=== PATIENT | female | born 1995 ===

== ENCOUNTER 2018-08-01 21:10 | Emergency (ER) | payer MEDICAID ==
[2018-08-01] MEDS ORDERED: Sodium Chloride 0.9% 1,000 ML IV STA (21:54)
--- NOTE | 2018-08-01 22:07 | ED PDOC ---
Arrival/HPI - General Chief Complaint: Flu-like Symptoms Time Seen by Provider: 08/01/18 21:12 Historian: Patient - History of Present Illness Narrative History of Present Illness (Text): 08/01/18 22:04 22yr old female presents today with 5 day history of sore throat, nasal congestion, productive cough, fever, chills, bodyaches. pt states she was seen in ER 2 days ago and diagnosed with the flu. pt states she has been taking t ylenol and took excedrin today for fever. pt denies abdominal pain, but states she gets nauseous after eating. pt c/o sore throat and post nasal drip. pt states cough is occasionally dry and occasionally productive. pt denies sick contacts. no other complaints. Past Medical History - Provider Review Nursing Documentation Reviewed: Yes - Travel History Have you recently traveled outside [place] w/in the past 3 mons?: No - Psychiatric Hx Psychophysiologic Disorder: No Hx Substance Use: Yes (CANNABIS) Family/Social History - Physician Review Nursing Documentation Reviewed: Yes Family/Social History: Unknown Family HX Smoking Status: Never Smoked Hx Alcohol Use: No Hx Substance Use: Yes (CANNABIS) Allergies/Home Meds Allergies/Adverse Reactions: Allergies No Known Allergies Allergy (Verified 08/01/18 21:19) Review of Systems - Review of Systems Constitutional: Fatigue, Fevers ENT: Sore Throat, Sinus Congestion Respiratory: Cough. absent: SOB Cardiovascular: absent: Chest Pain Gastrointestinal: Nausea. absent: Abdominal Pain, Constipation, Diarrhea Genitourinary Female: absent: Dysuria Musculoskeletal: absent: Arthralgias, Back Pain, Neck Pain Skin: absent: Rash, Pruritis Neurological: absent: Headache, Dizziness Psychiatric: absent: Anxiety, Depression, Suicidal Ideation Physical Exam Vital Signs Reviewed: Yes Vital Signs Temp Pulse Resp BP Pulse Ox 08/01/18 21:20 99.7 F H 111 H 17 144/91 H 97 Temperature: Afebrile Blood Pressure: Hypertensive Pulse: Tachycardic Respiratory Rate: Normal Appearance: Positive for: Well-Appearing, Non-Toxic, Comfortable Pain Distress: None Mental Status: Positive for: Alert and Oriented X 3 - Systems Exam Head: Present: Atraumatic Pupils: Present: PERRL Extroacular Muscles: Present: EOMI Conjunctiva: Present: Normal Ears: Present: Normal, NORMAL TM Mouth: Present: Moist Mucous Membranes, Normal Lips, Normal Tounge. No: Drooling, Trismus Pharnyx: Present: ERYTHEMA, Other (+ post nasal drip noted). No: EXUDATE, TONSILS ENLARGED Nose (External): Present: Atraumatic Nose (Internal): Present: Clear Mucous Neck: Present: Normal Range of Motion, Trachea Midline. No: Lymphadenopathy Respiratory/Chest: Present: Clear to Auscultation, Good Air Exchange. No: Respiratory Distress, Accessory Muscle Use Cardiovascular: Present: Regular Rate and Rhythm, Normal S1, S2. No: Murmurs Abdomen: No: Tenderness, Distention, Peritoneal Signs, Rebound, Guarding Back: Present: Normal Inspection Upper Extremity: Present: Normal ROM Lower Extremity: Present: Normal ROM Neurological: Present: GCS=15, Speech Normal Medical Decision Making ED Course and Treatment: 08/01/18 22:07 Patient is nontoxic well-appearing in no distress. Vital signs are stable. c/o flu like symptoms for 5 days. tylenol PO cbc: wbc; 11.7 cmp: wnl cxr; wnl ua: no leukocytes rapid flu; negative rapid strep; negative pt given 1L NS iv bolus, and toradol IV. pt reassessment; pt feeling much better; vitals stable. pt started on zithromax Po. discussed all results with patient in depth. I advised follow up with primary care physician within the next 2 days. I advised increase fluids and return if symptoms worsen persist or if new symptoms develop. Patient verbalizes understanding of discharge instructions and need for immediate followup. all aspects of this case were discussed the attending of record. IMPRESSION; cough Motrin one tablet every 6 hours as needed for pain/fever reduction Zithromax one tablet once daily x4 days Increase fluids Followup with primary care physician the next 2 days Return if symptoms worsen persist or if new symptoms develop Reassessment Condition: Re-examined, Improved - RAD Interpretation Radiology Orders: 08/01/18 21:54 CHEST TWO VIEWS (PA/LAT) [RAD] Stat - Medication Orders Current Medication Orders: Sodium Chloride (Sodium Chloride 0.9%) 1,000 mls @ 999 mls/hr IV .Q1H1M STA Stop: 08/01/18 22:54 Discontinued Medications Acetaminophen (Tylenol 325mg Tab) 975 mg PO STAT STA Stop: 08/01/18 21:47 Disposition/Present on Arrival - Present on Arrival Any Indicators Present on Arrival: No History of DVT/PE: No History of Uncontrolled Diabetes: No Urinary Catheter: No History of Decub. Ulcer: No History Surgical Site Infection Following: None - Disposition Have Diagnosis and Disposition been Completed?: Yes Diagnosis: Cough, Fever Disposition: HOME/ ROUTINE Disposition Time: 22:30 Patient Plan: Discharge Patient Problems: Current Active Problems Problem Status Onset Influenza Acute Condition: GOOD Discharge Instructions (ExitCare): Cough, Adult (DC), Fever of Unknown Origin (DC) Additional Instructions: Motrin one tablet every 6 hours as needed for pain/fever reduction Zithromax one tablet once daily x4 days Increase fluids Followup with primary care physician the next 2 days Return if symptoms worsen persist or if new symptoms develop Prescriptions: Azithromycin [Zithromax] 250 mg PO DAILY #4 tab Ibuprofen [Motrin] 600 mg PO Q6H PRN #20 tab PRN Reason: pain/fever reduction Referrals: Cherie Taveras MD [Medical Doctor] - Follow up with primary [facility] [Outside] - Follow up with primary Forms: [employer] (Rom[place]), WORK NOTE
[2018-08-01 22:45] LABS: ALB/GLOB RATIO 1.1 (1.1-1.8); ALBUMIN 4.7 g/dL (3.0-4.8); ALT/SGPT 31 U/L (7-56); AST/SGOT 36 U/L (14-36); BLOOD UREA NITROGEN 13 mg/dL (7-21); CALCIUM 9.5 mg/dL (8.4-10.5); GFR NON-AFRICAN AMERICAN > 60
[2018-08-01 22:46] LABS: PH,URINE 6.5 (4.7-8.0); URINE BILIRUBIN NEGATIVE (NEGATIVE); URINE BLOOD TRACE-INTACT (NEGATIVE); URINE GLUCOSE (UA) NEGATIVE (NEGATIVE); URINE LEUKOCYTE ESTERASE NEGATIVE Leu/uL (NEGATIVE); URINE PROTEIN NEGATIVE mg/dL (<30 mg/dL)
[2018-08-01 22:47] LABS: URINE APPEARANCE CLEAR (CLEAR); URINE COLOR YELLOW (YELLOW)
[2018-08-01 22:48] LABS: BASO # 0.04 K/mm3 (0.0-2.0); BASO % 0.3 % (0.0-3.0); EOS # 0.1 (0.0-0.7); EOS % 0.8 % (1.5-5.0); GRAN # 9.11 (1.4-6.5); GRAN % 77.8 % (50.0-68.0); HEMOGLOBIN 13.2 g/dL (12.0-16.0); LYMPH # 1.5 (1.2-3.4); LYMPH % 13.2 % (22.0-35.0); MEAN CELL VOLUME 89.3 fl (80.0-105.0); MEAN CORPUSCULAR HGB CONC 33.6 g/dl (31.0-37.0); MEAN PLATELET VOLUME 10.6 fl (7.0-11.0); MONO # 0.9 (0.1-0.6); MONO % 7.9 % (1.0-6.0); RBC 4.4 10^6/uL (3.5-6.1); RED CELL DISTRIBUTION WIDTH 11.8 % (11.5-14.5); WHITE BLOOD COUNT 11.7 10^3/uL (4.5-11.0)
[2018-08-01 23:00] LABS: URINE BACTERIA SMALL (NEG); URINE RBC 0 - 2 /hpf (0-2)
[2018-08-01 23:08] LABS: INFLUENZA A B NEGATIVE FOR FLU A/B (NEGATIVE)
[2018-08-02 00:16] VITALS: BP 101/60; PULSE 88; RESP 18; TEMP 98; O2SAT 98
--- NOTE | 2018-08-02 08:24 | RAD ---
HISTORY: fever/cough COMPARISON: None available. TECHNIQUE: Chest PA and lateral FINDINGS: LUNGS: No focal consolidation. Please note that chest x-ray has limited sensitivity for the detection of pulmonary masses. PLEURA: No significant pleural effusion identified. No definite pneumothorax . CARDIOVASCULAR: The cardiomediastinal silhouette appears within normal limits of size. No atherosclerotic calcification present. OSSEOUS STRUCTURES: No acute osseous abnormality identified. VISUALIZED UPPER ABDOMEN: Unremarkable. OTHER FINDINGS: None. IMPRESSION: No acute findings identified
== END 2018-08-02 01:10 | disposition home or self-care (01) ==
LOC: ED 21:10
DX: R05 Cough (principal); R50.9 Fever, unspecified
CPT/HCPCS: 71046; 80053; 81001; 85025; 87070; 87430; 87804; 96374; 99284; J1885; J7030